=== PATIENT | female | born 1990 | race Two or more races ===

== ENCOUNTER 2017-01-28 12:59 | Emergency (ER) | payer SELFPAY ==
[~2017-01-28] VITALS: Ht 152.4 cm; Wt 63.0 kg
[~2017-01-28 12:59] MED LIST: ACET-704 PO; HYDR-971 PO; IBUP-1060 PO; NAPR500T8 PO
[2017-01-28 14:18] VITALS: BP 91/52
--- NOTE | 2017-01-28 15:37 | PHYS DOC ---
Past Medical History Past Medical History: Anemia Past Surgical History: No Surgical History Alcohol Use: None Drug Use: None Adult General Chief Complaint Chief Complaint: Congestion HPI HPI Patient is a 26 year old female presents to the emergency department stating through the clinical exercise physiologist line as the patient speaks Japanese only that she has been having a cough congestion and sore throat the last 2 days. She's been taken Tylenol today for the pain and discomfort with no relief. Patient states that she presented to the emergency department via EMS. Review of Systems Review of Systems Constitutional: Denies fever or chills [] Eyes: Denies change in visual acuity, redness, or eye pain [] HENT: nasal congestion and sore throat [] Respiratory: cough denies shortness of breath [] Cardiovascular: No additional information not addressed in HPI [] GI: Denies abdominal pain, nausea, vomiting, bloody stools or diarrhea [] : Denies dysuria or hematuria [] Musculoskeletal: Denies back pain or joint pain [] Integument: Denies rash or skin lesions [] Neurologic: Denies headache, focal weakness or sensory changes [] Endocrine: Denies polyuria or polydipsia [] Allergies Allergies Allergies Coded Allergies Type Severity Reaction Last Updated Verified No Known Drug Allergies 11/18/13 No Physical Exam Physical Exam Constitutional: Well developed, well nourished, no acute distress, non-toxic appearance. [] HENT: Normocephalic, atraumatic, bilateral external ears normal, oropharynx moist, no oral exudates, nose normal. Bilateral tympanic membranes appear to be normal. Patient with frontal maxillary sinus tenderness. Patient with exudate noted on the left tonsil no uvula deviation no redness no erythematous noted. No anterior cervical adenopathy noted. Eyes: PERRLA, EOMI, conjunctiva normal, no discharge. [] Neck: Normal range of motion, no tenderness, supple, no stridor. [] Cardiovascular:Heart rate regular rhythm, no murmur [] Lungs & Thorax: Bilateral breath sounds clear to auscultation [] Skin: Warm, dry, no erythema, no rash. [] Back: No tenderness Extremities: No tenderness, no cyanosis, no clubbing, ROM intact, no edema. [] Neurologic: Alert and oriented X 3, normal motor function, normal sensory function, no focal deficits noted. [] Psychologic: Affect normal, judgement normal, mood normal. [] Current Patient Data Vital Signs Vital Signs Date Time Temp Pulse Resp B/P (MAP) Pulse Ox O2 Delivery O2 Flow Rate FiO2 01/28/17 14:18 97.7 83 18 100 Room Air 97.7 Lab Values Laboratory Tests Test 01/28/17 15:20 Influenza Type A Antigen Negative (NEGATIVE) Influenza Type B Antigen Negative (NEGATIVE) EKG EKG [] Radiology/Procedures Radiology/Procedures [] Course & Med Decision Making Course & Med Decision Making Pertinent Labs and Imaging studies reviewed. (See chart for details) Rapid strep negative. Influenza negative patient will be placed on Augmentin for sinusitis. Tylenol or ibuprofen for fever chills or generalized body aches and discomfort. She may also take Sudafed to help with the sinus pressure and congestion. Mucinex DM will also help relieve the pressure. She will be discharged home in stable condition. Signs and symptoms to return to the emergency department has been provided. Patient was recommended to followup with primary care provider in 5-7 days. All questions and concerns was answered at the patient's bedside. [] Dragon Disclaimer Dragon Disclaimer This electronic medical record was generated, in whole or in part, using a voice recognition dictation system. Departure Departure Impression: Primary Impression: Sinusitis Disposition: 01 HOME, SELF-CARE Condition: STABLE Referrals: UNKNOWN PCP NAME (PCP) Patient Instructions: Sinusitis, [id number] Additional Instructions: Activity as tolerated Medication as prescribed Tylenol or Ibuprofen for fever, chills or generalized body aches Sudafed as directed by manufacture Mucinex DM as directed by manufacture Drink plenty of fluids Followup with primary care provider in 5-7 days Return to emergency department as needed for signs and symptoms that become worse. Scripts Amoxicillin/Potassium Clav (AUGMENTIN 875-125 TABLET) 1 Each Tablet 1 TAB PO BID, #20 TAB Prov: CAIN HEIN RESIN COATER 01/28/17 Problem Qualifiers Primary Impression: Sinusitis Sinusitis location: unspecified location Chronicity: unspecified Qualified Codes: J32.9 - Chronic sinusitis, unspecified CAIN HEIN RESIN COATER Jan 28, 2017 15:37
[2017-01-28 17:06] LABS: OBC FLU VALID
[2017-01-28] MEDS ORDERED: AMOX1TAB61 PO (17:08)
[2017-01-29 06:33] LABS: NEGATIVE OBC STREP NEG; POSITIVE OBC STREP POS
== END 2017-01-28 17:14 | disposition home or self-care (01) ==
LOC: ER 12:59
DX: J32.9 Chronic sinusitis, unspecified (principal)
CPT/HCPCS: 87070; 87804; 87880; 99284

== ENCOUNTER 2021-09-28 17:31 | Emergency (ER) | payer SELFPAY ==
[~2021-09-28] VITALS: Ht 157.5 cm; Wt 77.3 kg
[~2021-09-28 17:31] MED LIST changes: +AMOX1TAB61 PO; +HYDR-3164 PO; -HYDR-971 PO
--- NOTE | 2021-09-28 17:53 | PHYS DOC ---
Past Medical History Past Medical History: Anemia (DEMETRI SEBASTIAN APRN) Past Surgical History: No Surgical History (DEMETRI SEBASTIAN APRN) Smoking Status: Never Smoker Alcohol Use: None Drug Use: None (DEMETRI SEBASTIAN APRN) General Adult EDM: Chief Complaint: ABDOMINAL PAIN IN HPI: HPI: Patient is a 31-year-old female who presents today with abdominal pain. Patient states her last normal menstrual period was August 14, 2021 she states that she had a positive test in August 2021 she presents today with increased lower abdominal pain for 1 week. Patient denies painful urination, vaginal discharge or vaginal bleeding. She states that she has an appointment in October 2021 for management of her . Patient states she is a 6 para 4 AB 1. (DEMETRI SEBASTIAN APRN) Review of Systems: Review of Systems: Constitutional: Denies fever or chills. [] Eyes: Denies change in visual acuity. [] HENT: Denies nasal congestion or sore throat. [] Respiratory: Denies cough or shortness of breath. [] Cardiovascular: Denies chest pain or edema. [] GI: Abdominal pain denies nausea, vomiting, bloody stools or diarrhea. [] : Denies dysuria. [] Musculoskeletal: Denies back pain or joint pain. [] Integument: Denies rash. [] Neurologic: Denies headache, focal weakness or sensory changes. [] Endocrine: Denies polyuria or polydipsia. [] Lymphatic: Denies swollen glands. [] Psychiatric: Denies depression or anxiety. [] (DEMETRI SEBASTIAN APRN) Heart Score: C/O Chest Pain: No Risk Factors: Risk Factors: DM, Current or recent (<one month) smoker, HTN, HLP, family history of CAD, obesity. Risk Scores: Score 0 - 3: 2.5% MACE over next 6 weeks - Discharge Home Score 4 - 6: 20.3% MACE over next 6 weeks - Admit for Clinical Observation Score 7 - 10: 72.7% MACE over next 6 weeks - Early Invasive Strategies (DEMETRI SEBASTIAN APRN) Allergies: Allergies: Allergies Coded Allergies Type Severity Reaction Last Updated Verified No Known Drug Allergies 11/18/13 No (DEMETRI SEBASTIAN APRN) Physical Exam: PE: Constitutional: Well developed, well nourished, no acute distress, non-toxic appearance. [] HENT: Normocephalic, atraumatic, bilateral external ears normal, oropharynx moist, no oral exudates, nose normal. [] Eyes: PERRLA, EOMI, conjunctiva normal, no discharge. [] Neck: Normal range of motion, no tenderness, supple, no stridor. [] Cardiovascular:Heart rate regular rhythm, no murmur [] Lungs & Thorax: Bilateral breath sounds clear to auscultation [] Abdomen: Bowel sounds normal, soft, lower abdominal, no masses, no pulsatile masses. [] Skin: Warm, dry, no erythema, no rash. [] Back: No tenderness, no CVA tenderness. [] Extremities: No tenderness, no cyanosis, no clubbing, ROM intact, no edema. [] Neurologic: Alert and oriented X 3, normal motor function, normal sensory function, no focal deficits noted. [] Psychologic: Affect normal, judgement normal, mood normal. [] (DEMETRI SEBASTIAN CONTROL ANALYST) Current Patient Data: Labs: Laboratory Tests Test 09/28/21 17:51 09/28/21 18:17 09/28/21 20:26 Bedside Urine HCG, Qualitative Hcg positive White Blood Count 8.3 x10^3/uL Red Blood Count 4.24 x10^6/uL Hemoglobin 12.5 g/dL Hematocrit 36.4 % Mean Corpuscular Volume 86 fL Mean Corpuscular Hemoglobin 30 pg Mean Corpuscular Hemoglobin Concent 34 g/dL Red Cell Distribution Width 13.8 % Platelet Count 249 x10^3/uL Neutrophils (%) (Auto) 69 % Lymphocytes (%) (Auto) 23 % Monocytes (%) (Auto) 7 % Eosinophils (%) (Auto) 1 % Basophils (%) (Auto) 0 % Neutrophils # (Auto) 5.7 x10^3/uL Lymphocytes # (Auto) 1.9 x10^3/uL Monocytes # (Auto) 0.6 x10^3/uL Eosinophils # (Auto) 0.1 x10^3/uL Basophils # (Auto) 0.0 x10^3/uL Maternal Serum HCG Beta Subunit 35302 mIU/mL Urine Collection Type Unknown Urine Color (Auto) Colorless Urine Turbidity Clear Urine pH (Auto) 7.5 Urine Specific [place] 1.017 Urine Protein (Auto) Negative mg/dL Urine Glucose (Auto)(UA) Negative mg/dL Urine Ketones (Auto) Negative mg/dL Urine Blood (Auto) Negative Urine Nitrite Negative Urine Bilirubin (Auto) Negative Urine Urobilinogen (Auto) Normal mg/dL Urine Leukocyte Esterase (Auto) Negative Urine RBC 0 /HPF Urine WBC 0 /HPF Urine Squamous Epithelial Cells Few /LPF Urine Bacteria 0 /HPF Vital Signs: Vital Signs Date Time Temp Pulse Resp B/P (MAP) Pulse Ox O2 Delivery O2 Flow Rate FiO2 09/28/21 20:26 80 18 100/64 (76) 100 Room Air 09/28/21 20:15 77 18 95/59 (71) 100 Room Air 09/28/21 19:45 77 18 102/58 (73) 100 Room Air 09/28/21 19:15 77 18 98/55 (69) 100 Room Air 09/28/21 18:45 85 18 118/60 (79) 100 Room Air 09/28/21 18:15 92 18 112/63 (79) 100 Room Air 09/28/21 17:36 98.3 76 18 113/64 (80) 100 Room Air 98.3 Vital Signs Date Time Temp Pulse Resp B/P (MAP) Pulse Ox O2 Delivery O2 Flow Rate FiO2 09/28/21 17:36 98.3 76 18 113/64 (80) 100 Room Air 98.3 (DEMETRI SEBASTIAN APRN) EKG: EKG: [] (DEMETRI SEBASTIAN CONTROL ANALYST) Radiology/Procedures: Radiology/Procedures: REASON: and pain PROCEDURE: OB <14 WKS W/TV First trimester OB ultrasound dated 09/28/2021. COMPARISON: None INDICATION: Pain. FINDINGS: Transabdominal and transvaginal imaging performed. Gestational sac and pole within the endometrial canal. The crown-rump length measures 0.54 cm correlating with a 6 week 2 day gestation. Estimated sonographic date of d elivery of 05/22/2022. heart rate 122 bpm. Yolk sac is visualized. Amniotic fluid volume appears appropriate. Placenta not well seen. Right ovary measures 3.2 x 1.4 x 2.2 cm. Left ovary measures 3.1 x 2.2 x 2.3 cm. There is a corpus luteum cyst at the left ovary measuring up to 1.7 cm. Normal color Doppler flow to both ovaries. IMPRESSION: 1. Single viable intrauterine gestation with estimated sonographic gestational age of 6 weeks 2 days. No acute findings. Electronically signed by: Maxime Randle MD (09/28/2021 7:19 PM) [facility][] (DEMETRI SEBASTIAN APRN) Course & Med Decision Making: Course & Med Decision Making Reviewed radiological and laboratory results with patient and did inform her she has approximately 6 weeks and at this time the is intrauterine, she is to follow-up with her primary care clinic or with Dr. Lucas or Dr. Barker for further evaluation and management of her . Patient verbalized understanding of this and agreeable to plan of care. (DEMETRI SEBASTIAN APRN) Dragon Disclaimer: Dragon Disclaimer: This electronic medical record was generated, in whole or in part, using a voice recognition dictation system. (DEMETRI SEBASTIAN APRN) Departure Departure Impression: Primary Impression: Qualified Codes: Z3A.01 - Less than 8 weeks gestation of Additional Impression: Abdominal pain during in first trimester Disposition: HOME / SELF CARE / HOMELESS Condition: STABLE Referrals: UNKNOWN PCP NAME (PCP) LEE LUCAS MD Patient Instructions: ABCs of , Abdominal Pain During Additional Instructions: At this time your appears normal, continue to follow-up in October 2021 with your clinic for management and evaluation of your Return to the emergency department should you have abdominal pain with vaginal bleeding or discharge associated with it if you are bleeding you are going through 2 pads an hour x2 hours please return to the emergency department Follow-up with Dr. Martinez [facility] [address] [place] [address] [facility] [address] [place] [address] [facility] [address] [facility] [place] [address] [facility] [address] [place] [address] [facility] [address] [place] [address] [facility] [address] [place] [address] [facility] [address] [place] [address] [facility] [address] [place] [address] [facility] [address] [place] [address] [facility] [address] [place] [address] Mandie or one of the listed clinics below for further evaluation and management of your Attending Signature Attending Signature I have reviewed the PA/SPOILAGE WORKER's note and plan of care. I was available for consultation as needed during the patient's visit in the emergency department. I agree with the clinical impression, plan, and disposition. (MAXIME ANDERSON DO) DEMETRI SEBASTIAN CONTROL ANALYST September 28, 2021 17:53 MAXIME ANDERSON DO September 28, 2021 23:57
[2021-09-28 18:51] LABS: BASO % 0 % (0-3); EOS # 0.1 x10^3/uL (0.0-0.7); EOS % 1 % (0-3); HEMATOCRIT 36.4 % (36.0-47.0); HEMOGLOBIN 12.5 g/dL (12.0-15.5); LYMPH # 1.9 x10^3/uL (1.0-4.8); LYMPH % 23 % (24-48); MEAN CORPUSCULAR HEMOGLOBIN 30 pg (25-35); MEAN CORPUSCULAR HGB CONC 34 g/dL (31-37); MEAN CORPUSCULAR VOLUME 86 fL (79-100); MONO # 0.6 x10^3/uL (0.0-1.1); MONO % 7 % (0-9); NEUT # 5.7 x10^3/uL (1.8-7.7); NEUT % 69 % (31-73); PLATELET COUNT 249 x10^3/uL (140-400); RED BLOOD COUNT 4.24 x10^6/uL (3.50-5.40); RED CELL DISTRIBUTION WIDTH 13.8 % (11.5-14.5); WHITE BLOOD COUNT 8.3 x10^3/uL (4.0-11.0)
--- NOTE | 2021-09-28 19:21 | RAD ---
First trimester OB ultrasound dated 09/28/2021. COMPARISON: None INDICATION: Pain. FINDINGS: Transabdominal and transvaginal imaging performed. Gestational sac and pole within the endometr ial canal. The crown-rump length measures 0.54 cm correlating with a 6 week 2 day gestation. Estimate d sonographic date of delivery of 05/22/2022. heart rate 122 bpm. Yolk sac is visualized. Amnio tic fluid volume appears appropriate. Placenta not well seen. Right ovary measures 3.2 x 1.4 x 2.2 cm. Left ovary measures 3.1 x 2.2 x 2.3 cm. There is a corpus cleve teum cyst at the left ovary measuring up to 1.7 cm. Normal color Doppler flow to both ovaries. IMPRESSION: 1. Single viable intrauterine gestation with estimated sonographic gestational age of 6 weeks 2 days. No acute findings. Electronically signed by: Maxime Randle MD (09/28/2021 7:19 PM) MICHAEL
[2021-09-28 20:26] VITALS: BP 100/64
[2021-09-28 20:57] LABS: BACTERIA,URINE 0 /HPF (0-FEW); RBC,URINE 0 /HPF (0-2); WBC,URINE 0 /HPF (0-4)
== END 2021-09-28 21:20 | disposition home or self-care (01) ==
LOC: ER 17:31
DX: O26.891 Other specified pregnancy related conditions, first trimester (principal); R10.30 Lower abdominal pain, unspecified; Z3A.01 Less than 8 weeks gestation of pregnancy
CPT/HCPCS: 36415; 76801; 76817; 81001; 81025; 84702; 85025; 86850; 86900; 86901; 99285-25

== ENCOUNTER 2021-10-03 21:34 | Emergency (ER) | payer SELFPAY ==
[~2021-10-03] VITALS: Ht 160 cm; Wt 76.4 kg
[2021-10-03 23:19] LABS: BASO % 0 % (0-3); EOS # 0.1 x10^3/uL (0.0-0.7); EOS % 1 % (0-3); HEMOGLOBIN 12.5 g/dL (12.0-15.5); LYMPH # 2.6 x10^3/uL (1.0-4.8); LYMPH % 28 % (24-48); MEAN CORPUSCULAR HEMOGLOBIN 30 pg (25-35); MEAN CORPUSCULAR HGB CONC 35 g/dL (31-37); MEAN CORPUSCULAR VOLUME 86 fL (79-100); MONO # 0.7 x10^3/uL (0.0-1.1); MONO % 8 % (0-9); NEUT # 5.9 x10^3/uL (1.8-7.7); NEUT % 63 % (31-73); PLATELET COUNT 246 x10^3/uL (140-400); RED BLOOD COUNT 4.19 x10^6/uL (3.50-5.40); RED CELL DISTRIBUTION WIDTH 13.5 % (11.5-14.5); WHITE BLOOD COUNT 9.3 x10^3/uL (4.0-11.0)
--- NOTE | 2021-10-03 23:23 | PHYS DOC ---
Past Medical History Past Medical History: Anemia Past Surgical History: No Surgical History Smoking Status: Never Smoker Alcohol Use: None Drug Use: None Adult General Chief Complaint Chief Complaint: VAGINAL BLEEDING HPI HPI Patient is a 31 year old female presenting to the emergency department for evaluation of vaginal bleeding at approximately 7 weeks . She says it was not a large amount of bleeding and was not enough to fill a pad. She has mild lower abdominal cramping but no fevers chills vomiting diarrhea constipation dysuria hematuria. She is G6, P4. She is in no acute distress with normal vital signs. Review of Systems Review of Systems Constitutional: Denies fever or chills [] Eyes: Denies change in visual acuity, redness, or eye pain [] HENT: Denies nasal congestion or sore throat [] Respiratory: Denies cough or shortness of breath [] Cardiovascular: No additional information not addressed in HPI [] GI: + abdominal pain. No nausea, vomiting, bloody stools or diarrhea [] : Denies dysuria or hematuria [] Musculoskeletal: Denies back pain or joint pain [] Integument: Denies rash or skin lesions [] Neurologic: Denies headache, focal weakness or sensory changes [] All other systems were reviewed and found to be within normal limits, except as documented in this note. Allergies Allergies Allergies Coded Allergies Type Severity Reaction Last Updated Verified No Known Drug Allergies 11/18/13 No Physical Exam Physical Exam Constitutional: Well developed, well nourished, no acute distress, non-toxic appearance. [] HENT: Normocephalic, atraumatic, bilateral external ears normal, oropharynx moist, no oral exudates, nose normal. [] Eyes: PERRLA, EOMI, conjunctiva normal, no discharge. [] Neck: Normal range of motion, no tenderness, supple, no stridor. [] Cardiovascular:Heart rate regular rhythm, no murmur [] Lungs & Thorax: Bilateral breath sounds clear to auscultation [] Abdomen: Bowel sounds normal, soft, mild suprapubic tenderness to palpation with no rebound or guarding. Skin: Warm, dry, no erythema, no rash. [] Back: No tenderness, no CVA tenderness. [] Extremities: No tenderness, no cyanosis, no clubbing, ROM intact, no edema. [] Neurologic: Alert and oriented X 3, normal motor function, normal sensory function, no focal deficits noted. [] Current Patient Data Vital Signs Vital Signs Date Time Temp Pulse Resp B/P (MAP) Pulse Ox O2 Delivery O2 Flow Rate FiO2 10/03/21 22:35 98.4 86 20 118/71 (87) 98 Room Air 98.4 Lab Values Laboratory Tests Test 10/03/21 22:48 10/03/21 22:54 10/03/21 23:10 Urine Collection Type Void Urine Color (Auto) Light yellow Urine Turbidity Clear Urine pH (Auto) 6.5 (<5.0-8.0) Urine Specific [place] 1.023 (1.000-1.030) Urine Protein (Auto) Negative mg/dL (Negative) Urine Glucose (Auto)(UA) Negative mg/dL (Negative) Urine Ketones (Auto) Negative mg/dL (Negative) Urine Blood (Auto) Small (Negative) Urine Nitrite Negative (Negative) Urine Bilirubin (Auto) Negative (Negative) Urine Urobilinogen (Auto) Normal mg/dL (Normal) Urine Leukocyte Esterase (Auto) Negative (Negative) Urine RBC Rare /HPF (0-2) Urine WBC 0 /HPF (0-4) Urine Squamous Epithelial Cells Few /LPF Urine Bacteria 0 /HPF (0-FEW) POC Urine HCG, Qualitative Hcg positive (Negative) White Blood Count 9.3 x10^3/uL (4.0-11.0) Red Blood Count 4.19 x10^6/uL (3.50-5.40) Hemoglobin 12.5 g/dL (12.0-15.5) Hematocrit 36.0 % (36.0-47.0) Mean Corpuscular Volume 86 fL (79-100) Mean Corpuscular Hemoglobin 30 pg (25-35) Mean Corpuscular Hemoglobin Concent 35 g/dL (31-37) Red Cell Distribution Width 13.5 % (11.5-14.5) Platelet Count 246 x10^3/uL (140-400) Neutrophils (%) (Auto) 63 % (31-73) Lymphocytes (%) (Auto) 28 % (24-48) Monocytes (%) (Auto) 8 % (0-9) Eosinophils (%) (Auto) 1 % (0-3) Basophils (%) (Auto) 0 % (0-3) Neutrophils # (Auto) 5.9 x10^3/uL (1.8-7.7) Lymphocytes # (Auto) 2.6 x10^3/uL (1.0-4.8) Monocytes # (Auto) 0.7 x10^3/uL (0.0-1.1) Eosinophils # (Auto) 0.1 x10^3/uL (0.0-0.7) Basophils # (Auto) 0.0 x10^3/uL (0.0-0.2) Maternal Serum HCG Beta Subunit 46180 mIU/mL (0-5) H Sodium Level 139 mmol/L (136-145) Potassium Level 3.9 mmol/L (3.5-5.1) Chloride Level 104 mmol/L (98-107) Carbon Dioxide Level 26 mmol/L (21-32) Anion Gap 9 (6-14) Blood Urea Nitrogen 13 mg/dL (7-20) Creatinine 0.8 mg/dL (0.6-1.0) Estimated GFR (Cockcroft-Gault) 84.8 BUN/Creatinine Ratio 16 (6-20) Glucose Level 90 mg/dL (70-99) Calcium Level 8.5 mg/dL (8.5-10.1) Total Bilirubin 0.2 mg/dL (0.2-1.0) Aspartate Amino Transferase (AST) 12 U/L (15-37) L Alanine Aminotransferase (ALT) 17 U/L (14-59) Alkaline Phosphatase 56 U/L (46-116) Total Protein 7.0 g/dL (6.4-8.2) Albumin 3.2 g/dL (3.4-5.0) L Albumin/Globulin Ratio 0.8 (1.0-1.7) L Laboratory Tests 10/03/21 23:10 Laboratory Tests 10/03/21 23:10 EKG EKG [] Radiology/Procedures Radiology/Procedures [] Course & Med Decision Making Course & Med Decision Making I will check labs and imaging treat symptoms and reassess. Patient has finding of IUP with FHT present. Labs normal. HCG has double from 5 days ago. Patient's pain is under control and she does not want anything for pain. She will be discharged with a diagnosis of threatened miscarriage and told to follow-up with her OB within 2 to 3 days for recheck. I told her to come back anytime with worsening pain bleeding or other concerns. Patient will be discharged in stable condition with normal vital signs and benign work up with strict return precautions discussed. Patient aware and agreeable with plan for discharge and verbalized understanding of the above instructions. Dragon Disclaimer Dragon Disclaimer This electronic medical record was generated, in whole or in part, using a voice recognition dictation system. Departure Departure Impression: Primary Impression: Threatened miscarriage Disposition: HOME / SELF CARE / HOMELESS Condition: STABLE Referrals: UNKNOWN PCP NAME (PCP) Patient Instructions: Threatened Miscarriage MURPHY WHITAKER DO October 03, 2021 23:23
[2021-10-03 23:31] LABS: CALCIUM 8.5 mg/dL (8.5-10.1); CREATININE 0.8 mg/dL (0.6-1.0); GFR 84.8; POTASSIUM 3.9 mmol/L (3.5-5.1)
[2021-10-03 23:36] LABS: BACTERIA,URINE 0 /HPF (0-FEW); RBC,URINE RARE /HPF (0-2); WBC,URINE 0 /HPF (0-4)
[2021-10-03 23:36] LABS: ALBUMIN 3.2 g/dL (3.4-5.0); ALBUMIN/GLOBULIN RATIO 0.8 (1.0-1.7); TOTAL BILIRUBIN 0.2 mg/dL (0.2-1.0)
--- NOTE | 2021-10-03 23:47 | RAD ---
US OB <14 WKS +TV Clinical Indication: Reason: bleeding in early preg / Spl. Instructions: / History: Comparison: None. TECHNIQUE: Real-time ultrasound imaging of the pelvis using transvaginal window is performed. Findings: Uterus is anteverted and measures 9.5 x 7.1 x 5.8 cm. There is a normally shaped intrauterine gestational sac without perigestational hemorrhage. Internall y a yolk sac and pole are identified. [place]-rump length is 1 cm, 7 weeks and 0 days. EDC ultrasound is May 22, 2022. Estimated heart rate is 141 bpm. There is normal blood flow in the maternal ovaries. There is a left corpus luteal cyst measuring 1.8 x 1.1 x 1.3 cm. No evidence of adnexal mass. No pelvic free fluid is seen. IMPRESSION: 1. Single live intrauterine gestation, estimated sonographic gestational age is 7 weeks and 0 days. 2. There is a left corpus luteum. Electronically signed by: Low Salas MD (10/03/2021 11:45 PM) [facility]
[2021-10-04 00:55] VITALS: BP 95/64
== END 2021-10-04 02:00 | disposition home or self-care (01) ==
LOC: ER 21:34
DX: O20.0 Threatened abortion (principal); Z3A.01 Less than 8 weeks gestation of pregnancy
CPT/HCPCS: 36415; 76801; 76817; 80053; 81001; 81025; 84702; 85025; 99284-25